=== PATIENT | male | born 1945 | race Hispanic/Latino ===

== ENCOUNTER 2022-02-14 23:18 | Emergency (ER) | payer MEDICARE ==
[2022-02-15] MEDS ORDERED: ONDANSETRON 4 MG ODT TAB PO ONE (02:49)
[2022-02-15] MEDS ORDERED: HYDROmorphone 1 MG/1 ML INJ IM ONE (02:49)
[2022-02-15] MEDS ORDERED: IBUPROFEN 600 MG TAB PO ONE (02:49)
--- NOTE | 2022-02-15 02:54 | XRay Report ---
RIGHT SHOULDER 3 VIEW(S) INDICATION / CLINICAL INFORMATION: right shoulder injury COMPARISON: None available. FINDINGS: BONES / JOINT(S): No acute fracture or subluxation. No significant arthritis. Punctate densities pako g the insertion of rotator cuff which may represent calcific tendinitis. SOFT TISSUES: No significant abnormality. ADDITIONAL FINDINGS: None. Signer Name: Evans Pereira DO Signed: 02/15/2022 2:50 AM Workstation Name: [id number]
--- NOTE | 2022-02-15 04:13 | Emergency Department Report ---
ED Upper Extremity Inj HPI - General Chief Complaint: Shoulder Injury Stated Complaint: FELL ON RGHT SHOULDER/PAINFUL Source: patient Mode of arrival: Ambulatory Limitations: No Limitations - History of Present Illness Initial Comments: Patient is a 76-year-old male with a history of hypertension, A. fib and colon cancer presented to the ED with complaint of acute onset right shoulder pain after he tripped on a piece of wood and fell down at home landing on the right shoulder about 12 hours ago. Patient states that the pain was initially mild but subsequently the pain started getting worse and he decided come to the ED for evaluation. Patient states that he is unable to perform any active range of motion of the right shoulder because of worsening pain. Patient denies head or neck injuries, back pain, nausea and vomiting, loss of consciousness, change in vision, chest pain or shortness of breath, numbness and tingling or weakness of upper extremities bilaterally. MD Complaint: Injury to:: right, shoulder -: Sudden, hour(s) (12) Other Extremity Injury: Shoulder: Right (Right shoulder pain after fall) Other Injuries: none Handedness: right Place: home, outdoors Severity scale (0 -10): 8 Improves With: rest Worsens With: movement of extremity Context: fall, injury Associated Symptoms: denies other symptoms. denies: weakness, numbness, neck pain, suspects foreign body, nausea/vomiting, heard/felt popping sensat, other - Related Data Previous Rx's Medication Instructions Recorded Last Taken Type Amiodarone [Cordarone 200 MG TAB] 200 mg PO BID 30 Days #60 tablet 05/02/20 Unknown Rx Apixaban [Eliquis] 5 mg PO Q12HR 30 Days #60 tablet 05/02/20 Unknown Rx Nitroglycerin [Nitrostat] 0.4 mg SL Q5M PRN 30 Days #90 05/02/20 Unknown Rx tablet dexAMETHasone [Decadron] 6 mg PO DAILY 6 Days #6 tablet 05/02/20 Unknown Rx dilTIAZem [Cardizem] 30 mg PO Q8HR 30 Days #90 tablet 05/02/20 Unknown Rx Ibuprofen [Motrin] 600 mg PO Q8H PRN #30 tablet 02/15/22 Unknown Rx traMADoL [Ultram] 50 mg PO Q6HR PRN #15 tablet 02/15/22 Unknown Rx Allergies Allergy/AdvReac Type Severity Reaction Status Date / Time No Known Allergies Allergy Verified 04/27/20 23:21 ED Review of Systems ROS: Stated complaint: FELL ON RGHT SHOULDER/PAINFUL Other details as noted in HPI Constitutional: denies: chills, fever Eyes: denies: eye pain, eye discharge, vision change ENT: denies: ear pain, throat pain Respiratory: denies: cough, shortness of breath, wheezing Cardiovascular: denies: chest pain, palpitations Endocrine: no symptoms reported Gastrointestinal: denies: abdominal pain, nausea, vomiting, diarrhea Genitourinary: denies: urgency, dysuria Musculoskeletal: arthralgia (Right shoulder pain). denies: back pain, joint swelling Skin: denies: rash, lesions Neurological: denies: headache, weakness, paresthesias Psychiatric: denies: anxiety, depression Hematological/Lymphatic: denies: easy bleeding, easy bruising ED Past Medical Hx - Past Medical History Previous Medical History?: Yes Hx Hypertension: Yes Hx Heart Attack/AMI: Yes (A. fib) Hx of Cancer: Yes (Colon) - Surgical History Past Surgical History?: Yes Additional Surgical History: Abdominal - Social History Smoking Status: Never Smoker Substance Use Type: None - Medications Home Medications: Home Medications Medication Instructions Recorded Confirmed Last Taken Type Amiodarone [Cordarone 200 MG TAB] 200 mg PO BID 30 Days #60 tablet 05/02/20 Unknown Rx Apixaban [Eliquis] 5 mg PO Q12HR 30 Days #60 tablet 05/02/20 Unknown Rx Nitroglycerin [Nitrostat] 0.4 mg SL Q5M PRN 30 Days #90 05/02/20 Unknown Rx tablet dexAMETHasone [Decadron] 6 mg PO DAILY 6 Days #6 tablet 05/02/20 Unknown Rx dilTIAZem [Cardizem] 30 mg PO Q8HR 30 Days #90 tablet 05/02/20 Unknown Rx Ibuprofen [Motrin] 600 mg PO Q8H PRN #30 tablet 02/15/22 Unknown Rx traMADoL [Ultram] 50 mg PO Q6HR PRN #15 tablet 02/15/22 Unknown Rx ED Physical Exam - General Limitations: No Limitations General appearance: alert, in no apparent distress - Head Head exam: Present: atraumatic, normocephalic, normal inspection - Eye Eye exam: Present: normal appearance, PERRL, EOMI Pupils: Present: normal accommodation - ENT ENT exam: Present: normal exam, normal orophraynx, mucous membranes moist, TM's normal bilaterally, normal external ear exam - Neck Neck exam: Present: normal inspection, full ROM. Absent: tenderness - Respiratory Respiratory exam: Present: normal lung sounds bilaterally. Absent: respiratory distress, wheezes, rales, stridor, chest wall tenderness, accessory muscle use, decreased breath sounds - Cardiovascular Cardiovascular Exam: Present: regular rate, normal rhythm, normal heart sounds. Absent: systolic murmur, diastolic murmur, rubs, gallop - GI/Abdominal GI/Abdominal exam: Present: soft, normal bowel sounds. Absent: tenderness, guarding, rebound, hyperactive bowel sounds, hypoactive bowel sounds - Extremities Exam Extremities exam: Present: normal inspection, tenderness (Palpable right shoulder tenderness with limited range of motion due to pain), normal capillary refill. Absent: full ROM (Limited range of motion of right shoulder due to pain), pedal edema, joint swelling, calf tenderness - Back Exam Back exam: Present: normal inspection, full ROM. Absent: tenderness, CVA tenderness (L), muscle spasm, paraspinal tenderness, vertebral tenderness - Neurological Exam Neurological exam: Present: alert, oriented X3, CN II-XII intact, normal gait, reflexes normal - Psychiatric Psychiatric exam: Present: normal affect, normal mood - Skin Skin exam: Present: warm, dry, intact, normal color. Absent: rash ED Course Vital Signs 02/15/22 02:23 Temperature 97.7 F Pulse Rate 62 Respiratory 18 Rate Blood Pressure 160/56 O2 Sat by Pulse 97 Oximetry ED Medical Decision Making - Radiology Data Radiology results: report reviewed, image reviewed [facility] [address] [place] [address] XRay Report Signed Patient: ROWENA STOUT MR#: [id number] : 1945 Acct:[id number] Age/Sex: 76 / M ADM Date: 02/14/22 Loc: ED Attending Dr: Ordering Physician: WADE FERRERA MD Date of Service: 02/15/22 Procedure(s): XR shoulder 2+V RT Accession Number(s): [id number] cc: WADE FERRERA MD Fluoro Time In Minutes: RIGHT SHOULDER 3 VIEW(S) INDICATION / CLINICAL INFORMATION: right shoulder injury COMPARISON: None available. FINDINGS: BONES / JOINT(S): No acute fracture or subluxation. No significant arthritis. Punctate densities along the insertion of rotator cuff which may represent calcific tendinitis. SOFT TISSUES: No significant abnormality. ADDITIONAL FINDINGS: None. Signer Name: Evans Pryor DO Signed: 02/15/2022 2:50 AM Workstation Name: [id number] Transcribed By: NS Dictated By: EVANS PRYOR DO Electronically Authenticated By: EVANS PRYOR DO Signed Date/Time: 02/15/22249 DD/ 0249 TD/TT: - Medical Decision Making This is a 76-year-old male with a history of hypertension, A. fib and colon cancer presented to the ED with complaint of acute onset right shoulder pain after he tripped on a piece of wood and fell down at home landing on the right shoulder about 12 hours ago. Patient states that the pain was initially mild but subsequently the pain started getting worse and he decided come to the ED for evaluation. Patient states that he is unable to perform any active range of motion of the right shoulder because of worsening pain. In the ED, patient is alert and oriented x3 and is not in any distress. Patient was treated for pain in the ED. Right shoulder x-ray showed no acute fractures or subluxations. On reevaluation, patient's pain is well controlled medication. Patient is able to perform active range of motion again with the right shoulder. The right shoulder was immobilized in an arm sling and the patient was discharged home on pain medications and advised to follow-up with his primary care physician in 5 to 7 days for reevaluation or return to the ED immediately if symptoms get worse. - Differential Diagnosis Shoulder fracture; AC joint separation; shoulder sprain; muscle strain Critical care attestation.: If time is entered above; I have spent that time in minutes in the direct care of this critically ill patient, excluding procedure time. ED Disposition Clinical Impression: Right shoulder pain Qualifiers: Chronicity: acute Qualified Code(s): M25.511 - Pain in right shoulder Right shoulder injury Qualifiers: Encounter type: initial encounter Qualified Code(s): S49.91XA - Unspecified injury of right shoulder and upper arm, initial encounter Sprain of right shoulder Qualifiers: Encounter type: initial encounter Shoulder sprain type: unspecified sprain Qualified Code(s): S43.401A - Unspecified sprain of right shoulder joint, initial encounter Disposition: HOME / SELF CARE / HOMELESS Is pt being admited?: No Does the pt Need Aspirin: No Condition: Stable Instructions: Musculoskeletal Pain, Shoulder Pain, [id number], Shoulder Sprain Additional Instructions: The right shoulder x-ray showed no acute fractures or subluxations. Therefore your injuries are likely musculoskeletal following the fall. Therefore take medications with food, drink plenty of fluids and follow-up with your primary care physician in 5 to 7 days for reevaluation. Return to the ED immediately if symptoms get worse. Prescriptions: Ibuprofen [Motrin] 600 mg PO Q8H PRN #30 tablet PRN Reason: Pain traMADoL [Ultram] 50 mg PO Q6HR PRN #15 tablet PRN Reason: Pain Referrals: DOUGLAS ALVAREZ MD [Staff Physician] - 3-5 Days Time of Disposition: 04:14 Print Language: GREENLANDIC
[2022-02-15 05:10] VITALS: BP 130/70
== END 2022-02-15 05:10 | disposition home or self-care (01) ==
LOC: ED 23:18
DX: M25.511 Pain in right shoulder (principal)
CPT/HCPCS: 73030; 96372; 99284; J1170; 99283; J3490; Q0162